=== PATIENT | female | born 1960 | race Caucasian/White ===

== ENCOUNTER 2016-10-28 22:56 | Inpatient (IN) | payer MEDICARE, MEDICAID ==
[~2016-10-28] VITALS: Ht 152.4 cm; Wt 40.4 kg
[~2016-10-28 22:56] MED LIST: ALBUTEROL SULFAT3 M2 IH; ANORO ELLIPTA1 POW IH; ASPIRIN81 M3 PO; ATIVAN GENERIC 11 MG PO; AUGMENTIN 875-1 EACH PO; CARVEDILOL3.125 M1 PO; CLOPIDOGREL75 M2 PO; COMBIVENT RESPI1 SPR IH; DOCUSATE SODIU100 MG PO; ENDOCET 325 MG-1 TA1 PO; FLONASE 50 MCG16 GM; FUROSEMIDE 20MG20 MG PO; IPRATROPIUM BROM3 M1 IH; ISOSORBIDE MONO30 MG PO; KLOR-CON 1010 ME1 PO; LEVOTHYROXINE0.05 MG PO; LIPITOR10 MG PO; LIPITOR80 MG PO; MAALOX MAXIMUM355 ML PO; MACROBID100 M3 PO; MIRALAX17 GM/PACK PO; MUCINEX ER600 MG PO; NICODERM C21 MG/24 H TD; NORFLEX100 MG PO; OXYCODONE 5MG TA5 MG PO; OXYCODONE HCL30 MG PO; PANTOPRAZOLE SO40 M1 PO; PLAVIX75 MG PO; POTASSIUM CHLO10 ME3 PO; PREDNISONE 10MG10 MG PO; PREDNISONE 20MG20 MG PO; PROAIR HFA0.09 MG/AC IH; PROTONIX 40MG T40 MG PO; PULMICORT0.5 MG/2 M IN; SENNA DOCUSATE1 TAB PO; SENNA LAXATIVE8.6 MG PO; SENNA PO; SEPTRA DS 800 M1 TAB PO; SERTRALINE 100100 MG PO; SINGULAIR10 MG PO; SMZ/TMP DS TAB 800 PO; SPIRONOLACTONE25 MG NG; VENTOLIN H0.09 MG/Ac IH; ZITHROMAX Z PA250 MG PO; ZITHROMAX500 MG PO; ZOLOFT100 M1 PO
[2016-10-28 23:02] VITALS: BP 159/101
[2016-10-29] VITALS (12 sets, daily range): BP systolic 121–151; BP diastolic 41–90
[2016-10-29] MEDS ORDERED: CLONAZEPAM 1MG T1 MG PO (00:21)
[2016-10-29] MEDS ORDERED: LASIX 40MG. TAB40 MG PO (00:23)
[2016-10-29] MEDS ORDERED: MORPHINE SULFAT30 M3 PO (00:25)
[2016-10-29] MEDS ORDERED: SEROQUEL 25MG T25 MG PO (00:29)
[2016-10-29] MEDS ORDERED: ALDACTONE 25MG25 MG PO (00:34)
[2016-10-29 01:10] LABS: HEMOGLOBIN 11.3 g/dL (12.2-16.2); LYMPH % 8.1 % (10-50.0)
[2016-10-29 01:11] LABS: LYMPH # 1.1 K/mm3 (0.7-4.5)
[2016-10-29 01:23] LABS: NEUTROPHILS 80 % (42-76)
--- NOTE | 2016-10-29 01:29 | Emergency Room Report ---
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 N Clinical Suspician of Infection? N Mental Status: 2 - Mildly Altered Sepsis Risk:Possible Sepsis Risk Have you (or family members/close friends) recently traveled outside the [place]? N If Yes, where/when: Have you had exposure to infectious disease within the past month? N TB? Other? Specify: Source patient, RN notes reviewed, family, RN/MD, EMS notes reviewed Exam Limitations no limitations Comment This is a 56-year-old feel patient presented to the emergency room with shortness of breath and productive cough for the past 2 days. Patient advised that she was just discharged a few days ago from [facility], where shows hospitalist with similar symptoms. Patient has a history of lung cancer for which was treated in the past, last radiation treatment was in 02/22. ALLERGIES Coded Allergies: iodine (Severe, S-DIFF. BREATHING 07/10/16) naproxen (Intermediate, I-ITCHING 07/10/16) acetaminophen (From NORCO) (NA-HALLUCINATIONS 07/10/16) hydrocodone (From NORCO) (NA-HALLUCINATIONS 07/10/16) moxifloxacin (From AVELOX) (07/10/16) Home Medications Active Scripts Amoxicillin/Potassium Clav (Augmentin 875-125 Tablet) 1 EACH PO BID #20 TAB Prov: 09/05/16 AZITHROMYCIN (Azithromycin) 500 MG PO MWF #15 TAB Ref 2 Prov: 09/05/16 Prednisone (Prednisone 20MG) 20 MG PO BID #14 TAB Prov: 09/05/16 Reported Medications Aspirin (Aspirin EC) 81 MG PO DAILY #90 TAB ALBUTEROL-IPRATROPIUM (Iprat-Albut 0.5-3(2.5) MG/3 Ml) 3 ML IH QIDP PRN BREATHING Prednisone (Prednisone 10MG) 10 MG PO DAILY Mag Hydrox/Al Hydrox/Simeth (Maalox Maximum Strength Susp) 30 ML PO Q4HP PRN HEARTBURN SENNOSIDES-DOCUSATE SODIUM (Senokot-S Tablet) 2 TAB PO DAILYP PRN CONSTIPATION Albuterol Sulfate (Ventolin Hfa) 0.09 MG IH Q6H Atorvastatin Calcium (Lipitor 10MG) 10 MG PO QHS Budesonide (Pulmicort) 0.5 MG IN BID Docusate Sodium 100 MG PO BID Fluticasone Propionate (Flonase [address] [place]) 1 SPRAY NA BID Guaifenesin (Mucinex) 1,200 MG PO BID Levothyroxine Sodium (Levothyroxine) 0.025 MG NG DAILY Pantoprazole Sodium (Protonix 40MG TAB) 40 MG PO BID Nicotine (Nicoderm Cq) 21 MG TD DAILY Polyethylene Glycol 3350 (Miralax) 17 GM PO DAILY #30 Sertraline Hydrochloride (Sertraline 100MG) 100 MG PO DAILY #30 ALBUTEROL/IPRATROPIUM (Combivent Respimat Inhal [place]) 1 PUFF IH QID #4 Potassium Chloride (Klor-Con 10) 10 MEQ PO DAILY #90 Clonazepam (Clonazepam 1MG) 1 MG PO BIDP PRN ANXIETY Furosemide (Lasix 40MG) 40 MG PO DAILY MORPHINE SULFATE SR/ER (Morphine Sulfate ER) 30 MG PO Q12 Quetiapine Fumarate (Seroquel 25MG) 25 MG PO NIGHT ONLY Spironolactone (Aldactone) 12.5 MG PO DAILY History Medical History General CAD? No Angina: Yes [place]: Yes Hypertension? No Hyperlipidemia? Yes CHF? Yes DVT? No PE? No COPD? Yes Asthma? Yes Anemia? No GERD? Yes Gastric ulcers? No GI Bleed? No Hernia? No Thyroid Problems? Yes Hypothyroidism? Yes CVA? No Seizures? No Diabetes? No Renal Insuffiency? No End Stage Renal Disease? No UTI? No Stones? No GB Disease: No Nephritic Syndrome? No Asplenia? No Hepatitis? No Sickle Cell Disease? No Arthritis? Yes Migraines? No Cataracts? No Glaucoma? No MRSA? Yes HIV? No TB? No Anxiety? Yes Depression? Yes Cancer? Yes Site: CERVICAL, SKIN,LUNG More? Yes Additional hx: FIBROMYALGIA Immunization Hx DT/Tetanus Unknown Flu Refused Pneumonia Received In Past Surgical Hx Previous Surgery?Y STENT LEFT ARM HYSTERECTOMY ORAL SURGERY TOOTH [place] Hx LMP menopause Social History Smoking Hx Smoker: Current Every Day Smoker Tobacco: Yes Type Cigarettes Packs/day < 1 Pack Alcohol Alcohol: No Review of Systems All Other Systems Reviewed and Negative Respiratory cough, shortness of breath, wheezing Physical Exam Vital Signs Vital Signs Date Time Temp Pulse Resp B/P Pulse O2 O2 Flow FiO2 Ox Delivery Rate 10/29 0400 98.3 109 22 149/80 99 OXYGEN 10/29 0312 103 20 123/80 96 10/29 0240 112 22 139/96 97 10/29 0209 118 24 155/99 94 10/29 0144 120 24 153/113 97 10 10/29 0100 119 32 150/105 99 10/29 0031 124 32 139/88 99 10 10/29 0001 130 32 140/79 83 10/28 2341 22 78 10 10/28 2340 78 10/28 2332 130 22 122/70 85 10/28 2302 98.5 117 22 159/101 78 10 General Appearance normal appearance, WD/WN, moderate distress Respiratory Status Yes: respiratory distress, trachea midline, chest symmetrical, non tender chest. Lung Sounds anterior: wheezing. posterior: wheezing. bilateral: wheezing. left: wheezing. right: wheezing. 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 No Comment Patient appears to have minimal response to therapy given so far, she had an unsuccessful attempt to be weaned off the oxygen, so far, using partial nonrebreather mask as well as Venturi mask with FiO2 of 55 percent. Patient placed on BiPAP, which she seems to tolerate better after receiving small doses of IV Benadryl. On reexamination patient is asleep, heart rate down to 105, pulse oximetry shows 100 percent saturation. DDx: Pneumonia, chronic obstructive pulmonary disease flare, pulmonary embolism, acute myocardial infarction, aortic dissection, acute myocardial infarction, acute bronchitis, etc. 01:25am-case discussed with Dr. Mojica, advised of patient's presentation, physical exam, pulse oximetry readings, ED course. Dr. Mojica agreed to accept patient as admission to stepdown unit, and attempt to wean off the oxygen as tolerated. Medical care transferred to Dr. Mojica at this time. I will write bridge admit orders, per hospital policy. weight clerk will call Dr. Mojica upon patient's arrival to the unit in order to obtain full in patient orders. Results/Orders Laboratory Tests 10/29/16 0155: ABG pH 7.25 L, ABG pCO2 (Temp Corrct 90.2 H, ABG pO2 (Temp Correct 88.5, ABG HCO3 38.9 H, ABG Total CO2 41.7 H, ABG O2 Sat (Calculated) 95.7, ABG Base Excess 11.8 H, Vent Rate 18, Blood Gas Comments R/R 10/29/16 0100: Sodium 141, Potassium 3.9, Chloride 98, Carbon Dioxide 39 H, BUN 16, Creatinine 0.6, Estimated Creat Clear 64, Estimated GFR (MDRD) 104, Glucose 120 H, Calcium 8.5, Total Bilirubin 0.2, AST 36, ALT 55, Alkaline Phosphatase 136 H, Creatine Kinase 79, CK and CKMB Interp 4.8 H, Troponin I 0.03, Total Protein 7.0, Albumin 3.2 L, Globulin 3.8 H, Albumin/Globulin Ratio 0.8 L, WBC 13.1 H, RBC 4.76, Hgb 11.3 L, Hct 36.3 L, MCV 76.3 L, RDW 21.4 H, Plt Count 258, Gran % 89.7 H, Gran # 11.8 H, Total Counted 100, Lymphocytes % 8.1 L, Monocytes % 2.2, Neutrophils 80 H, Band Neutrophils 6, Lymphocytes (Manual) 11, Lymphocytes # 1.1, Monocytes (Manual) 3, Monocytes # 0.3, Platelet Estimate NORMAL, Hypochromasia 1+, Rouleaux 2+, PUBS MCHC 31.1 L, MCH 23.7 L Current Medication Orders Sig/Nadia Start time Last Medication Dose Route Stop Time Status Admin Methylprednisolone 125 MG ONCE ONE 10/29 2344 AC 10/29 Sodium Succinate IV 10/29 2345 0040 Ceftriaxone Sodium 1 GM DAILY 10/29 0900 UNV Sodium Chloride 50 ML IV Methylprednisolone 60 MG Q8 10/29 0500 UNV 10/29 Sodium Succinate IV 0447 Albuterol/Ipratropium 3 ML Q4H6 10/29 0200 UNV 10/29 INH 0630 Diphenhydramine HCl 12.5 MG Q6HP PRN 10/29 0200 UNV IV Lorazepam 0.5 MG ONCE ONE 10/29 0130 CAN IV 10/29 0131 Diphenhydramine HCl 0 .STK-MED ONE 10/29 0103 DC .ROUTE Diphenhydramine HCl 12.5 MG ONCE ONE 10/29 0100 DC 10/29 IV 10/29 0101 0105 Ceftriaxone Sodium 0 .STK-MED ONE 10/29 0038 DC IV Methylprednisolone 0 .STK-MED ONE 10/29 0038 DC Sodium Succinate .ROUTE Sodium Chloride 50 ML .STK-MED ONE 10/29 0037 DC IV Ceftriaxone Sodium 1 GM ONCE ONE 10/29 0015 DC 10/29 Sodium Chloride 50 ML IV 10/29 0044 0041 Sodium Chloride 10 ML PRN PRN 10/28 2330 AC 10/29 IV 10/29 2328 0041 Orders Procedure Date/time Status [id number] FAT/LO CHO/STEFF 10/29 B Active RT Sputum Induction for specim 10/29 358 Active RT Sputum Specimen, Collected 10/29 358 Active RT Shift Assessment 10/29 035 Active RT Pulse Oximetry, Provide 10/29 035 Active RT O2 Installation/Change Set 10/29 035 Active RT O2 Therapy, Monitor/Maintai 10/29 358 Active RT BIPAP, Initial Setup/Change 10/29 358 Active RT BIPAP, Monitor/Maintain 10/29 035 Active RT Aerosol Treatment, Provide 10/29 035 Active RT Aerosol Treatment, Provide 10/29 035 Active Decision to admit 10/29 0131 Active DIFFERENTIAL-WBC 10/29 0100 Complete ARTERIAL BLOOD GAS REQUEST 10/29 0000 Active ADMIT PATIENT 10/29 UNK Active PULSE OXIMETRY REQUEST 10/29 UNK Active OXYGEN REQUEST 10/29 UNK Active RT REQUEST DUONEB 10/29 UNK Active VITAL SIGNS 10/29 UNK Active FORKLIFT OPERATOR 10/29 UNK Active POM NURSE CHRIS HOSE ORDER 10/29 UNK Active CODE STATUS 10/29 UNK Active PATIENT ACTIVITY ORDER 10/29 UNK Active ELECTROCARDIOGRAM REQUEST 10/28 2328 Active IV SALINE LOCK 10/28 2328 Active OXYGEN PER NURSE 10/28 2328 Active FLOOR MANAGER 10/28 2328 Active TROPONIN I 10/28 2328 Complete CPK 10/28 2328 Complete COMPLETE METABOLIC PANEL 10/28 2328 Complete CKMB 10/28 2328 Complete CBC WITH AUTO DIFF 10/28 2328 Complete 12 LEAD EKG-CHIDI (INITIAL) 10/28 UNK Active CM/EKG CM/manager video Rhythm Sinus Tachycardia Rate 130 Ectopy No Comments No acute ischemic changes EKG rate (130), rhythm (sinus tachycardia), no evid. of ischemic chgs XRAY/CT/US XRAY/CT/US XRAY chest XR interpretation by discussed w/radiologist Xray Results no infiltrates, normal heart size, COPD, severe Departure Departure Time of Disposition 0126 Disposition Still a Patient Clinical Impression Primary Impression: COPD exacerbation Secondary Impressions: Acute exacerbation of chronic bronchitis Condition STABLE Referrals MICHELLE HENRIQUEZ (Family) ED Critical Care Critical Care No at 0735
--- NOTE | 2016-10-29 01:29 | Emergency Room Report ---
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 N Clinical Suspician of Infection? N Mental Status: 2 - Mildly Altered Sepsis Risk:Possible Sepsis Risk Have you (or family members/close friends) recently traveled outside the [place]? N If Yes, where/when: Have you had exposure to infectious disease within the past month? N TB? Other? Specify: Source patient, RN notes reviewed, family, RN/MD, EMS notes reviewed Exam Limitations no limitations Comment This is a 56-year-old feel patient presented to the emergency room with shortness of breath and productive cough for the past 2 days. Patient advised that she was just discharged a few days ago from [facility], where shows hospitalist with similar symptoms. Patient has a history of lung cancer for which was treated in the past, last radiation treatment was in 02/22. ALLERGIES Coded Allergies: iodine (Severe, S-DIFF. BREATHING 07/10/16) naproxen (Intermediate, I-ITCHING 07/10/16) acetaminophen (From NORCO) (NA-HALLUCINATIONS 07/10/16) hydrocodone (From NORCO) (NA-HALLUCINATIONS 07/10/16) moxifloxacin (From AVELOX) (07/10/16) Home Medications Active Scripts Amoxicillin/Potassium Clav (Augmentin 875-125 Tablet) 1 EACH PO BID #20 TAB Prov: 09/05/16 AZITHROMYCIN (Azithromycin) 500 MG PO MWF #15 TAB Ref 2 Prov: 09/05/16 Prednisone (Prednisone 20MG) 20 MG PO BID #14 TAB Prov: 09/05/16 Reported Medications Aspirin (Aspirin EC) 81 MG PO DAILY #90 TAB ALBUTEROL-IPRATROPIUM (Iprat-Albut 0.5-3(2.5) MG/3 Ml) 3 ML IH QIDP PRN BREATHING Prednisone (Prednisone 10MG) 10 MG PO DAILY Mag Hydrox/Al Hydrox/Simeth (Maalox Maximum Strength Susp) 30 ML PO Q4HP PRN HEARTBURN SENNOSIDES-DOCUSATE SODIUM (Senokot-S Tablet) 2 TAB PO DAILYP PRN CONSTIPATION Albuterol Sulfate (Ventolin Hfa) 0.09 MG IH Q6H Atorvastatin Calcium (Lipitor 10MG) 10 MG PO QHS Budesonide (Pulmicort) 0.5 MG IN BID Docusate Sodium 100 MG PO BID Fluticasone Propionate (Flonase 50 Mcg Nasal [place]) 1 SPRAY NA BID Guaifenesin (Mucinex) 1,200 MG PO BID Levothyroxine Sodium (Levothyroxine) 0.025 MG NG DAILY Pantoprazole Sodium (Protonix 40MG TAB) 40 MG PO BID Nicotine (Nicoderm Cq) 21 MG TD DAILY Polyethylene Glycol 3350 (Miralax) 17 GM PO DAILY #30 Sertraline Hydrochloride (Sertraline 100MG) 100 MG PO DAILY #30 ALBUTEROL/IPRATROPIUM (Combivent Respimat Inhal [place]) 1 PUFF IH QID #4 Potassium Chloride (Klor-Con 10) 10 MEQ PO DAILY #90 Clonazepam (Clonazepam 1MG) 1 MG PO BIDP PRN ANXIETY Furosemide (Lasix 40MG) 40 MG PO DAILY MORPHINE SULFATE SR/ER (Morphine Sulfate ER) 30 MG PO Q12 Quetiapine Fumarate (Seroquel 25MG) 25 MG PO NIGHT ONLY Spironolactone (Aldactone) 12.5 MG PO DAILY History Medical History General CAD? No Angina: Yes [place]: Yes Hypertension? No Hyperlipidemia? Yes CHF? Yes DVT? No PE? No COPD? Yes Asthma? Yes Anemia? No GERD? Yes Gastric ulcers? No GI Bleed? No Hernia? No Thyroid Problems? Yes Hypothyroidism? Yes CVA? No Seizures? No Diabetes? No Renal Insuffiency? No End Stage Renal Disease? No UTI? No Stones? No GB Disease: No Nephritic Syndrome? No Asplenia? No Hepatitis? No Sickle Cell Disease? No Arthritis? Yes Migraines? No Cataracts? No Glaucoma? No MRSA? Yes HIV? No TB? No Anxiety? Yes Depression? Yes Cancer? Yes Site: CERVICAL, SKIN,LUNG More? Yes Additional hx: FIBROMYALGIA Immunization Hx DT/Tetanus Unknown Flu Refused Pneumonia Received In Past Surgical Hx Previous Surgery?Y STENT LEFT ARM HYSTERECTOMY ORAL SURGERY SYSTEMS MGR Hx LMP menopause Social History Smoking Hx Smoker: Current Every Day Smoker Tobacco: Yes Type Cigarettes Packs/day < 1 Pack Alcohol Alcohol: No Review of Systems All Other Systems Reviewed and Negative Respiratory cough, shortness of breath, wheezing Physical Exam Vital Signs Vital Signs Date Time Temp Pulse Resp B/P Pulse O2 O2 Flow FiO2 Ox Delivery Rate 10/29 0400 98.3 109 22 149/80 99 OXYGEN 10/29 0312 103 20 123/80 96 10/29 0240 112 22 139/96 97 10/29 0209 118 24 155/99 94 10/29 0144 120 24 153/113 97 10 10/29 0100 119 32 150/105 99 10/29 0031 124 32 139/88 99 10 10/29 0001 130 32 140/79 83 10/28 2341 22 78 10 10/28 2340 78 10/28 2332 130 22 122/70 85 10/28 2302 98.5 117 22 159/101 78 10 General Appearance normal appearance, WD/WN, moderate distress Respiratory Status Yes: respiratory distress, trachea midline, chest symmetrical, non tender chest. Lung Sounds anterior: wheezing. posterior: wheezing. bilateral: wheezing. left: wheezing. right: wheezing. 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 No Comment Patient appears to have minimal response to therapy given so far, she had an unsuccessful attempt to be weaned off the oxygen, so far, using partial nonrebreather mask as well as Venturi mask with FiO2 of 55 percent. Patient placed on BiPAP, which she seems to tolerate better after receiving small doses of IV Benadryl. On reexamination patient is asleep, heart rate down to 105, pulse oximetry shows 100 percent saturation. DDx: Pneumonia, chronic obstructive pulmonary disease flare, pulmonary embolism, acute myocardial infarction, aortic dissection, acute myocardial infarction, acute bronchitis, etc. 01:25am-case discussed with Dr. Mojica, advised of patient's presentation, physical exam, pulse oximetry readings, ED course. Dr. Mojica agreed to accept patient as admission to stepdown unit, and attempt to wean off the oxygen as tolerated. Medical care transferred to Dr. Mojica at this time. I will write bridge admit orders, per hospital policy. hospital unit clerk will call Dr. Mojica upon patient's arrival to the unit in order to obtain full in patient orders. Results/Orders Laboratory Tests 10/29/16 0155: ABG pH 7.25 L, ABG pCO2 (Temp Corrct 90.2 H, ABG pO2 (Temp Correct 88.5, ABG HCO3 38.9 H, ABG Total CO2 41.7 H, ABG O2 Sat (Calculated) 95.7, ABG Base Excess 11.8 H, Vent Rate 18, Blood Gas Comments R/R 10/29/16 0100: Sodium 141, Potassium 3.9, Chloride 98, Carbon Dioxide 39 H, BUN 16, Creatinine 0.6, Estimated Creat Clear 64, Estimated GFR (MDRD) 104, Glucose 120 H, Calcium 8.5, Total Bilirubin 0.2, AST 36, ALT 55, Alkaline Phosphatase 136 H, Creatine Kinase 79, CK and CKMB Interp 4.8 H, Troponin I 0.03, Total Protein 7.0, Albumin 3.2 L, Globulin 3.8 H, Albumin/Globulin Ratio 0.8 L, WBC 13.1 H, RBC 4.76, Hgb 11.3 L, Hct 36.3 L, MCV 76.3 L, RDW 21.4 H, Plt Count 258, Gran % 89.7 H, Gran # 11.8 H, Total Counted 100, Lymphocytes % 8.1 L, Monocytes % 2.2, Neutrophils 80 H, Band Neutrophils 6, Lymphocytes (Manual) 11, Lymphocytes # 1.1, Monocytes (Manual) 3, Monocytes # 0.3, Platelet Estimate NORMAL, Hypochromasia 1+, Rouleaux 2+, PUBS MCHC 31.1 L, MCH 23.7 L Current Medication Orders Sig/Nadia Start time Last Medication Dose Route Stop Time Status Admin Methylprednisolone 125 MG ONCE ONE 10/29 2344 AC 10/29 Sodium Succinate IV 10/29 2345 0040 Ceftriaxone Sodium 1 GM DAILY 10/29 0900 UNV Sodium Chloride 50 ML IV Methylprednisolone 60 MG Q8 10/29 0500 UNV 10/29 Sodium Succinate IV 0447 Albuterol/Ipratropium 3 ML Q4H6 10/29 0200 UNV 10/29 INH 0630 Diphenhydramine HCl 12.5 MG Q6HP PRN 10/29 0200 UNV IV Lorazepam 0.5 MG ONCE ONE 10/29 0130 CAN IV 10/29 0131 Diphenhydramine HCl 0 .STK-MED ONE 10/29 0103 DC .ROUTE Diphenhydramine HCl 12.5 MG ONCE ONE 10/29 0100 DC 10/29 IV 10/29 0101 0105 Ceftriaxone Sodium 0 .STK-MED ONE 10/29 0038 DC IV Methylprednisolone 0 .STK-MED ONE 10/29 0038 DC Sodium Succinate .ROUTE Sodium Chloride 50 ML .STK-MED ONE 10/29 0037 DC IV Ceftriaxone Sodium 1 GM ONCE ONE 10/29 0015 DC 10/29 Sodium Chloride 50 ML IV 10/29 0044 0041 Sodium Chloride 10 ML PRN PRN 10/28 2330 AC 10/29 IV 10/29 2328 0041 Orders Procedure Date/time Status [id number] FAT/LO CHO/STEFF 10/29 B Active RT Sputum Induction for specim 10/29 358 Active RT Sputum Specimen, Collected 10/29 358 Active RT Shift Assessment 10/29 035 Active RT Pulse Oximetry, Provide 10/29 035 Active RT O2 Installation/Change Set 10/29 035 Active RT O2 Therapy, Monitor/Maintai 10/29 358 Active RT BIPAP, Initial Setup/Change 10/29 358 Active RT BIPAP, Monitor/Maintain 10/29 035 Active RT Aerosol Treatment, Provide 10/29 035 Active RT Aerosol Treatment, Provide 10/29 035 Active Decision to admit 10/29 0131 Active DIFFERENTIAL-WBC 10/29 0100 Complete ARTERIAL BLOOD GAS REQUEST 10/29 0000 Active ADMIT PATIENT 10/29 UNK Active PULSE OXIMETRY REQUEST 10/29 UNK Active OXYGEN REQUEST 10/29 UNK Active RT REQUEST DUONEB 10/29 UNK Active VITAL SIGNS 10/29 UNK Active STUDIO DIRECTOR 10/29 UNK Active POM NURSE CHRIS HOSE ORDER 10/29 UNK Active CODE STATUS 10/29 UNK Active PATIENT ACTIVITY ORDER 10/29 UNK Active ELECTROCARDIOGRAM REQUEST 10/28 2328 Active IV SALINE LOCK 10/28 2328 Active OXYGEN PER NURSE 10/28 2328 Active FURNITURE MOVER HELPER 10/28 2328 Active TROPONIN I 10/28 2328 Complete CPK 10/28 2328 Complete COMPLETE METABOLIC PANEL 10/28 2328 Complete CKMB 10/28 2328 Complete CBC WITH AUTO DIFF 10/28 2328 Complete 12 LEAD EKG-CHIDI (INITIAL) 10/28 UNK Active CM/EKG CM/shaker washer Rhythm Sinus Tachycardia Rate 130 Ectopy No Comments No acute ischemic changes EKG rate (130), rhythm (sinus tachycardia), no evid. of ischemic chgs XRAY/CT/US XRAY/CT/US XRAY chest XR interpretation by discussed w/radiologist Xray Results no infiltrates, normal heart size, COPD, severe Departure Departure Time of Disposition 0126 Disposition Still a Patient Clinical Impression Primary Impression: COPD exacerbation Secondary Impressions: Acute exacerbation of chronic bronchitis Condition STABLE Referrals MICHELLE HENRIQUEZ (Family) ED Critical Care Critical Care No at 0735
[2016-10-29 01:57] LABS: ARTERIAL PO2 88.5 MMHG (80-100)
[2016-10-29 01:58] LABS: ARTERIAL ABE 11.8 MMOL/L (-2.4-+2.3); ARTERIAL TCO2 41.7 MMOL/L (23-27); OXYGEN 50; VENT RATE 18
--- NOTE | 2016-10-29 06:48 | RADIOLOGY REPORT PS360 ---
CHEST-PORTABLE ORDERING PHYSICIAN : Sonu Taylor MD PATIENT AGE: 56 years GENDER: Female INDICATION: chest pain short of breath pain PROCEDURE: CHEST-PORTABLE COMPARISON: July FINDINGS: Motion degrades today's images particularly here at the left lung left lung appears clear stable. Mild cardiomegaly. Hyperexpansion suggests COPD Generous hilar regions reflect the generous pulmonary arteries bilaterally as seen on previous CTA from August 2014 Mild prominence of perihilar markings on right and may reflect bronchitis either acute or chronic similar to previous August 2016 exam Left lung relatively hyper lucent comparison with this also is similar to prior studies IMPRESSION Limited portable chest film . COPD . No focal pneumonia. Mild prominence of central markings right perihilar region may reflect bronchitis, either acute or chronic.. Similar appearance to August 2016 Difficult to exclude a subtle additional perihilar infiltrate
--- NOTE | 2016-10-29 07:14 | PHARMACY CLINIC NOTE ---
Patient Demographics Patient Demographics Admission date: 10/29/16 Date: 10/29/16 Time: 0713 Allergies Coded Allergies: iodine (Severe, S-DIFF. BREATHING 07/10/16) naproxen (Intermediate, I-ITCHING 07/10/16) acetaminophen (From NORCO) (NA-HALLUCINATIONS 07/10/16) hydrocodone (From NORCO) (NA-HALLUCINATIONS 07/10/16) moxifloxacin (From AVELOX) (07/10/16) HEIGHT- FT: 5 IN: 0.00 K.115 VTE General Information Labs: Laboratory Tests 10/29 0100 Hematology Hgb (12.2 - 16.2 g/dL) 11.3 L Hct (37.0 - 47.0 %) 36.3 L Plt Count (142 - 424 K/mm3) 258 Disclaimer The following section includes nursing documentation that has been pulled in for pharmacy review. VTE prophylaxis NQF 0371 VTE prophylaxis ordered? Yes Type of prophylaxis/treatment: CHRIS at 0714
--- NOTE | 2016-10-29 07:26 | HISTORY AND PHYSICAL REPORT ---
Demographics: Admit date: 10/29/16 Chief complaint: Shortness of breath PRIMARY DIAGNOSIS: chronic obstructive pulmonary disease exacerbation/acute r Allergies: Coded Allergies: iodine (Severe, S-DIFF. BREATHING 07/10/16) naproxen (Intermediate, I-ITCHING 07/10/16) acetaminophen (From [facility]) (NA-HALLUCINATIONS 07/10/16) hydrocodone (From [facility]) (NA-HALLUCINATIONS 07/10/16) moxifloxacin (From [facility]) (07/10/16) History of present illness: History of present illness: 56-year-old female presented to the emergency department with depressed mental status and difficulty breathing. She was found be having a chronic obstructive pulmonary disease exacerbation and also was hypercapnic. She was started on aerosols, IV steroids and placed on BiPAP. This morning she awakens when her name is called and tells me that for the last 3-4 days she had increasing cough with white sputum production and mild dyspnea. Past medical history: Family HX Family Hx Insignificant No Immunization HX DT/Tetanus Unknown Flu Refused Pneumonia Received In Past General CAD? No Angina: Yes FL: Yes Hypertension? No Hyperlipidemia? Yes CHF? Yes DVT? No PE? No COPD? Yes Asthma? Yes Anemia? No GERD? Yes Gastric ulcers? No GI Bleed? No Hernia? No Thyroid Problems? Yes Hypothyroidism? Yes CVA? No Seizures? No Diabetes? No Renal Insuffiency? No UTI? No Stones? No GB Disease: No Nephritic Syndrome? No Asplenia? No Hepatitis? No Sickle Cell Disease? No Arthritis? Yes Migraines? No Cataracts? No Glaucoma? No MRSA? Yes HIV? No TB? No Anxiety? Yes Depression? Yes Cancer? Yes Site: CERVICAL, SKIN,LUNG More? Yes Additional hx: FIBROMYALGIA Past Surgical HX Previous Surgery?Y STENT LEFT ARM HYSTERECTOMY ORAL SURGERY Current home meds: Active Scripts Amoxicillin/Potassium Clav (Augmentin 875-125 Tablet) 1 EACH PO BID #20 TAB Prov: 09/05/16 AZITHROMYCIN (Azithromycin) 500 MG PO MWF #15 TAB Ref 2 Prov: 09/05/16 Prednisone (Prednisone 20MG) 20 MG PO BID #14 TAB Prov: 09/05/16 Reported Medications Aspirin (Aspirin EC) 81 MG PO DAILY #90 TAB ALBUTEROL-IPRATROPIUM (Iprat-Albut 0.5-3(2.5) MG/3 Ml) 3 ML IH QIDP PRN BREATHING Prednisone (Prednisone 10MG) 10 MG PO DAILY Mag Hydrox/Al Hydrox/Simeth (Maalox Maximum Strength Susp) 30 ML PO Q4HP PRN HEARTBURN SENNOSIDES-DOCUSATE SODIUM (Senokot-S Tablet) 2 TAB PO DAILYP PRN CONSTIPATION Albuterol Sulfate (Ventolin Hfa) 0.09 MG IH Q6H Atorvastatin Calcium (Lipitor 10MG) 10 MG PO QHS Budesonide (Pulmicort) 0.5 MG IN BID Docusate Sodium 100 MG PO BID Fluticasone Propionate (Flonase 50 Mcg Nasal [place]) 1 SPRAY NA BID Guaifenesin (Mucinex) 1,200 MG PO BID Levothyroxine Sodium (Levothyroxine) 0.025 MG NG DAILY Pantoprazole Sodium (Protonix 40MG TAB) 40 MG PO BID Nicotine (Nicoderm Cq) 21 MG TD DAILY Polyethylene Glycol 3350 (Miralax) 17 GM PO DAILY #30 Sertraline Hydrochloride (Sertraline 100MG) 100 MG PO DAILY #30 ALBUTEROL/IPRATROPIUM (Combivent Respimat Inhal [place]) 1 PUFF IH QID #4 Potassium Chloride (Klor-Con 10) 10 MEQ PO DAILY #90 Clonazepam (Clonazepam 1MG) 1 MG PO BIDP PRN ANXIETY Furosemide (Lasix 40MG) 40 MG PO DAILY MORPHINE SULFATE SR/ER (Morphine Sulfate ER) 30 MG PO Q12 Quetiapine Fumarate (Seroquel 25MG) 25 MG PO NIGHT ONLY Spironolactone (Aldactone) 12.5 MG PO DAILY Social Hx: Smoking HX Tobacco Yes Type Cigarettes Packs/day < 1 PACK Alcohol Alcohol: No Hx of Drug Use Drug Use? No Review of systems: Constitutional No: chills, fever. Respiratory see HPI. Cardiovascular no symptoms reported Gastrointestinal/Abdominal no symptoms reported Genitourinary no symptoms reported. Musculoskeletal no symptoms reported. Neurological Yes: no symptoms reported. Exam: Lab data for last 24 hours: Laboratory Tests 10/29/16 0155: ABG pH 7.25 L, ABG pCO2 (Temp Corrct 90.2 H, ABG pO2 (Temp Correct 88.5, ABG HCO3 38.9 H, ABG Total CO2 41.7 H, ABG O2 Sat (Calculated) 95.7, ABG Base Excess 11.8 H, Vent Rate 18, Blood Gas Comments R/R 10/29/16 0100: Sodium 141, Potassium 3.9, Chloride 98, Carbon Dioxide 39 H, BUN 16, Creatinine 0.6, Estimated Creat Clear 64, Estimated GFR (MDRD) 104, Glucose 120 H, Calcium 8.5, Total Bilirubin 0.2, AST 36, ALT 55, Alkaline Phosphatase 136 H, Creatine Kinase 79, CK and CKMB Interp 4.8 H, Troponin I 0.03, Total Protein 7.0, Albumin 3.2 L, Globulin 3.8 H, Albumin/Globulin Ratio 0.8 L, WBC 13.1 H, RBC 4.76, Hgb 11.3 L, Hct 36.3 L, MCV 76.3 L, RDW 21.4 H, Plt Count 258, Gran % 89.7 H, Gran # 11.8 H, Total Counted 100, Lymphocytes % 8.1 L, Monocytes % 2.2, Neutrophils 80 H, Band Neutrophils 6, Lymphocytes (Manual) 11, Lymphocytes # 1.1, Monocytes (Manual) 3, Monocytes # 0.3, Platelet Estimate NORMAL, Hypochromasia 1+, Rouleaux 2+, PUBS MCHC 31.1 L, MCH 23.7 L Admission vital signs: 1ST Vital Signs Result Date Time Pulse Ox 78 10/28 2302 B/P 159/101 10/28 2301 O2 Flow Rate 10 10/28 230 Temp 98.5 10/28 230 Pulse 117 10/28 2302 Resp 22 10/28 2302 O2 Delivery OXYGEN 10/29 0400 Additional information: Patient is sitting and appears asleep in bed. She awakens easily. She will answer a few questions and echo back to sleep. BiPAP is in place but does not have a good seal. Oropharynx is dry from BiPAP. Neck has no lymphadenopathy or carotid bruits. Lungs have adventitious sounds and expiratory wheezes. Inspiratory effort is poor. Heart has regular rate and rhythm. Abdomen is thin soft nontender. Extremities are warm to the touch. Skin is without lesions. Plan: Problem List 1. CO2 narcosis 2. Chronic obstructive pulmonary disease with (acute) exacerbation 3. Respiratory failure Plan: Continue aerosols, IV Solu-Medrol, BiPAP. Repeat ABG this a.m. Home medicines have been reordered. at 2089
[2016-10-29 08:30] LABS: ARTERIAL PO2 67.8 MMHG (80-100); ARTERIAL TCO2 42.4 MMOL/L (23-27)
[2016-10-29 08:31] LABS: ALLEN'S TEST ACCEPTABLE; OXYGEN 40; PRESSURE SUPPORT 5; VENT RATE 18
[2016-10-29] MEDS ORDERED: MORPHINE SULFAT15 M4 PO (19:43)
[2016-10-30] VITALS (9 sets, daily range): BP systolic 115–142; BP diastolic 65–96
--- NOTE | 2016-10-30 07:25 | ACUTE CARE PROGRESS NOTE (QUA) ---
Progress Notes Subjective Date 10/30/16 Time 0723 Note Patient is sitting up in bed this morning. She admits to improvement in her dyspnea. She has lots of concerns about the way she is receiving her medicines here in the hospital as our schedules a little bit different than hers. She is also concerned about the number of medicines that she is taking that have the effect of suppressing the respiratory drive. These are prescribed by her primary care physician after she was discharged from hospice. She complains of headache which she believes is due to the long-acting morphine. She is sitting up in bed. She is conversant. Nasal cannula oxygen is in place. Lungs have expiratory wheezes. Heart has a regular rate and rhythm. Patient is improving in regards to her chronic obstructive pulmonary disease exacerbation. We will continue steroids and aerosols. Discontinue antibiotics. I have explained to the patient she will need to address her pain medications with her primary care physician. Objective Findings Last VS-Temp:98.4 B/P:130/73 Pulse:81 Resp:18 SaO2:96 OXYGEN Last weight lbs:88 oz:7 K.115 Method:Bed Scales Laboratory Tests 10/29/16 2004: POC Glucose 206 H 10/29/16 0805: ABG pH 7.32 L, ABG pCO2 (Temp Corrct 78.9 H, ABG pO2 (Temp Correct 67.8 L, ABG HCO3 40.0 H, ABG Total CO2 42.4 H, ABG O2 Sat (Calculated) 92.1, ABG Base Excess 14.0 H, Clive Test ACCEPTABLE, Vent Rate 18, POC PEEP BIPAP 10/5, Pressure Support 5, Blood Gas Comments RIGHT RADIAL 10/29/16 0740: B-Natriuretic Peptide 148 H Assessment/Plan Problem List 1. CO2 narcosis 2. Chronic obstructive pulmonary disease with (acute) exacerbation 3. Respiratory failure Patient condition Improving This inpt stay is expected to cross 2 MNs from start of care Yes at 0736
[2016-10-31] VITALS (8 sets, daily range): BP systolic 109–150; BP diastolic 68–79
--- NOTE | 2016-10-31 08:07 | ACUTE CARE PROGRESS NOTE (QUA) ---
Progress Notes Subjective Date 10/31/16 Time 0805 Note Patient complains of feeling short of breath. Her cough is productive of some white sputum. She was able to get a few hours of sleep last night. She is awake and sitting up in bed eating breakfast. Alert and oriented. She does not appear dyspneic. Nasal cannula oxygen is in place. Lungs have improved aeration but persistent moderate expiratory wheezes. Heart has a regular rate and rhythm. Continue current medicines. Increase budesonide to milligram twice daily. 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 I will give the patient some IV magnesium today to see if this can help with bronchospasm Objective Findings Last VS-Temp:98.0 B/P:143/79 Pulse:94 Resp:20 SaO2:96 OXYGEN Last weight lbs:88 oz:7 K.115 Method:Bed Scales Assessment/Plan Problem List 1. CO2 narcosis 2. Chronic obstructive pulmonary disease with (acute) exacerbation 3. Respiratory failure Patient condition Improving Plan: continue current care, make medication changes This inpt stay is expected to cross 2 MNs from start of care Yes at 0806
[2016-11-01] VITALS (9 sets, daily range): BP systolic 117–163; BP diastolic 66–95
--- NOTE | 2016-11-01 08:05 | ACUTE CARE PROGRESS NOTE (QUA) ---
Progress Notes Subjective Date 11/01/16 Time 0803 Note Patient complains of headache. She has mentioned this previously and blames on the morphine that she is taking. In regards to her breathing she admits she still gets little choked. She is sitting up in bed. She does not appear dyspneic. She is talkative. Nasal cannula oxygen is in place. Lungs have fair aeration with less expiratory wheezes today than yesterday. Heart has a regular rate and rhythm. Patient is improving. Continue IV steroids, nebs. If she continues to improve at this rate I anticipate discharge tomorrow Objective Findings Last VS-Temp:98.2 B/P:136/86 Pulse:86 Resp:20 SaO2:90 OXYGEN Last weight lbs:90 oz:0 K.823 Method:Floor Scales Assessment/Plan Problem List 1. CO2 narcosis 2. Chronic obstructive pulmonary disease with (acute) exacerbation 3. Respiratory failure Patient condition Improving Plan: continue current care This inpt stay is expected to cross 2 MNs from start of care Yes at 0804
[2016-11-02] VITALS (7 sets, daily range): BP systolic 125–152; BP diastolic 70–97
--- NOTE | 2016-11-02 07:18 | ACUTE CARE PROGRESS NOTE (QUA) ---
Progress Notes Subjective Date 11/02/16 Time 0714 Note Patient was sleeping soundly when I enter the room this morning. She was resting on her side. She awakens. She denies any shortness of breath at this time but is rather drowsy. Review of her medications show she took her clonazepam and Seroquel yesterday evening. Nursing notes reviewed the patient expresses lots of anxiety about dying due to her severe lung disease. Patient reports diarrhea. Nursing notes report multiple soft brown stools. Patient is somewhat drowsy this morning. She is able to answer questions. Lungs have fair aeration with light expiratory wheezes. There is been mild improvement since yesterday. Heart has a regular rate and rhythm. Patient will be reassessed this afternoon when she is awake. She may be possible discharge as I think she is near her baseline. Check diarrhea PCR panel Objective Findings Last VS-Temp:98.3 B/P:152/71 Pulse:110 Resp:24 SaO2:98 OXYGEN Last weight lbs:90 oz:0 K.823 Method:Floor Scales Laboratory Tests 11/01/16 2207: POC Glucose 146 H Assessment/Plan Problem List 1. CO2 narcosis 2. Chronic obstructive pulmonary disease with (acute) exacerbation 3. Respiratory failure 4. Chronic respiratory failure Patient condition Stable Plan: continue current care This inpt stay is expected to cross 2 MNs from start of care Yes at 0717
[2016-11-03] VITALS (8 sets, daily range): BP systolic 120–131; BP diastolic 60–81
--- NOTE | 2016-11-03 08:30 | ACUTE CARE PROGRESS NOTE (QUA) ---
Progress Notes Subjective Date 11/03/16 Time 0830 Note Patient feels about the same. States she has not slept well but is sleeping soundly when I entered the room. Lungs have better air movement bilaterally. Heart rate regular. Abdomen soft. Assessment/Plan Problem List 1. CO2 narcosis 2. Chronic obstructive pulmonary disease with (acute) exacerbation 3. Respiratory failure 4. Chronic respiratory failure Patient condition Improving Plan: continue current care, initiate discharge plan, patient has a host of social reasons for delaying discharge until tomorrow. We will involve care management. This inpt stay is expected to cross 2 MNs from start of care Yes at 0830
[2016-11-03 09:18] LABS: HEMOGLOBIN 10.6 g/dL (12.2-16.2); LYMPH # 0.4 K/mm3 (0.7-4.5); LYMPH % 3.9 % (10-50.0)
[2016-11-03 13:05] LABS: NEUTROPHILS 94 % (42-76)
[2016-11-04 04:11] VITALS: BP 114/56
[2016-11-04 08:03] VITALS: BP 112/76
--- NOTE | 2016-11-04 08:48 | ACUTE CARE PROGRESS NOTE (QUA) ---
Progress Notes Subjective Date 11/04/16 Time 0847 Note Patient slept well. Had some belching and burping that was relieved with simethicone last night. Lungs are about the same as previous exams with fairly symmetric air entry, minimal rhonchi noted. Heart rate regular. Abdomen soft, patient's alert, oriented 3. Objective Findings Last VS-Temp:98.0 B/P:112/76 Pulse:94 Resp:18 SaO2:92 OXYGEN Last weight lbs:89 oz:0 K.37 Method:Floor Scales Assessment/Plan Problem List 1. CO2 narcosis 2. Chronic obstructive pulmonary disease with (acute) exacerbation 3. Respiratory failure 4. Chronic respiratory failure Patient condition Improving Plan: continue current care This inpt stay is expected to cross 2 MNs from start of care Yes at 0847
--- NOTE | 2016-11-04 08:50 | DISCHARGE SUMMARY STANDARD ---
Demographics Admit date: 10/29/16 Discharge date: 11/04/16 History of present illness History of present illness 56-year-old female presented to the emergency department with depressed mental status and difficulty breathing. She was found be having a chronic obstructive pulmonary disease exacerbation and also was hypercapnic. She was started on aerosols, IV steroids and placed on BiPAP. This morning she awakens when her name is called and tells me that for the last 3-4 days she had increasing cough with white sputum production and mild dyspnea. Hospital Course Hospital Course: Patient was admitted, she improved very slowly in a stepwise fashion with intravenous steroids and aerosol treatments and was maintained on her chronic azithromycin antibiotic and did well with this. She had a little bit of problem the stomach gas, controlled with simethicone. This morning she is back to her compromised baseline and she will be discharged home to follow-up with her regular physician, hemodialysis patient care specialist and oncologist. We will send her home on higher dose prednisone for the next 3 days. Discharge diagnoses Problem List 1. CO2 narcosis 2. Chronic obstructive pulmonary disease with (acute) exacerbation 3. Respiratory failure 4. Chronic respiratory failure Medications Medications: Discharge meds are as noted. Follow up Follow up in office in: 5 DAYS with: MICHELLE HENRIQUEZ at 0877
[2016-11-04] MEDS ORDERED: PREDNISONE 10MG10 MG PO (08:53)
[2016-11-04 09:49] VITALS: BP 112/76
[2016-11-04 09:51] VITALS: BP 112/76
[2016-11-04 12:15] VITALS: BP 115/84
[2016-12-09] MEDS ORDERED: CEFDINIR300 M1 PO (09:41)
== END 2016-11-04 13:47 | disposition home or self-care (01) | DRG 189 ==
LOC: ER 22:56 → ICU 10-29 01:41 → 2ND 11-01 03:41
PROVIDERS: Emergency Medicine; Family Medicine; Internal Medicine Adolescent Medicine
DX: J96.22 Acute and chronic respiratory failure with hypercapnia (principal); Z99.81 Dependence on supplemental oxygen; J44.1 Chronic obstructive pulmonary disease with (acute) exacerbation